=== PATIENT | female | born 1985 | race Asian ===

== ENCOUNTER 2016-12-06 07:45 | Emergency (ER) | payer BC, OTHER ==
[~2016-12-06] VITALS: Ht 160 cm; Wt 45.4 kg
[2016-12-06 08:16] VITALS: BP 114/87
== END 2016-12-06 09:44 | disposition home or self-care (01) ==
LOC: ER 07:45
DX: J06.9 Acute upper respiratory infection, unspecified (principal)

== ENCOUNTER → 2017-06-10 | Outpatient (CLI) | payer BC ==
[2017-06-10 10:34] LABS: Basophils # (auto) 0 uL; Basophils % (auto) 0.3 % (0.0-2.0); Eosinophils # (auto) 0.1 uL; Lymphocytes # (auto) 1.6 uL; Mean Corpuscular Volume 69.4 fL (80.0-100.0); Neutrophils # (auto) 7.6 uL; White Blood Cell 9.9 10^3/uL (4.4-10.8)
[2017-06-10 10:37] LABS: Eosinophils % (auto) 1.4 % (0.0-7.0); Hematocrit 36.3 % (36.0-46.0); Hemoglobin 11.5 g/dL (12.2-16.2); Mean Corpuscular Hemoglobin 21.9 pg (28.0-32.0); Mean Corpuscular Hgb Conc. 31.6 g/dL (32.0-36.0); Monocytes # (auto) 0.6 uL; Monocytes % (auto) 5.8 % (0.0-12.0); Neutrophils % (auto) 76.5 % (37.0-80.0); Platelet Count (auto) 319 10^3/uL (140-450); Red Blood Cells 5.23 10^6/uL (4.0-5.20); Red Cell Distribution Width 14.8 % (11.8-14.3)
[2017-06-10 11:15] LABS: Alcohol, Urine < 3.0 mg/dL (0-5); Amphetamine Screen, Urine NEGATIVE (NEGATIVE); Barbiturate Scree,Urine NEGATIVE (NEGATIVE); Benzodiazephine Screen, Urine NEGATIVE (NEGATIVE); Cannabinoid Screen, Urine NEGATIVE (NEGATIVE); Cocaine Screen, Urine NEGATIVE (NEGATIVE); Opiate Scree,Urine NEGATIVE (NEGATIVE); Phencyclidine Screen, Urine NEGATIVE (NEGATIVE)
[2017-06-11 03:10] LABS: RPR Non Reactive (Non Reactive)
== END | disposition home or self-care (01) ==
LOC: LAB 09:34
PROVIDERS: ATTEND Obstetrics & Gynecology
DX: Z34.80 Encounter for supervision of other normal pregnancy, unspecified trimester (principal); Z31.430 Encounter of female for testing for genetic disease carrier status for procreative management; Z3A.00 Weeks of gestation of pregnancy not specified
CPT/HCPCS: 36415; 80307; 81220; 83036; 84144; 84702; 85025; 86592; 86703; 86762; 86850; 86900; 86901; 87086; 87340

== ENCOUNTER → 2017-09-25 | Outpatient (CLI) | payer BC ==
[2017-09-25 08:06] LABS: Mean Corpuscular Hgb Conc. 31.1 g/dL (32.0-36.0)
[2017-09-25 08:08] LABS: Hematocrit 35.4 % (36.0-46.0); Mean Corpuscular Hemoglobin 22.1 pg (28.0-32.0); Platelet Count (auto) 256 10^3/uL (140-450); Red Blood Cells 4.98 10^6/uL (4.0-5.20); Red Cell Distribution Width 14.2 % (11.8-14.3); White Blood Cell 11.5 10^3/uL (4.4-10.8)
[2017-09-25 08:12] LABS: Band Neutrophils % (manual) 0; Basophils % (manual) 0 (0.0-2.0); Blast Cells 0; Myelocytes % 0; Promyelocytes % 0; Reactive Lymphocytes 0
[2017-09-25 08:27] LABS: Eosinophils % (manual) 1 (0-7); Lymphocytes % (manual) 11 (10.0-50.0); Metamyelocytes % 2; Monocytes % (manual) 9 (0-12)
== END | disposition home or self-care (01) ==
LOC: LAB 07:45
PROVIDERS: ATTEND Obstetrics & Gynecology
DX: O99.810 Abnormal glucose complicating pregnancy (principal); Z3A.00 Weeks of gestation of pregnancy not specified
CPT/HCPCS: 36415; 82951; 83036; 85007; 85027

== ENCOUNTER 2017-10-25 18:57 | Observation (INO) | payer BC ==
[~2017-10-25 18:57] MED LIST: IRON150T2 PO; NIF10C PO; PREN-96 PO; PROG200C6 PV
== END 2017-10-25 20:11 | disposition home or self-care (01) | DRG 781 ==
LOC: LDRP 18:57
PROVIDERS: ADMIT Specialist; ATTEND Specialist
DX: O24.419 Gestational diabetes mellitus in pregnancy, unspecified control (principal); O60.03 Preterm labor without delivery, third trimester; Z3A.31 31 weeks gestation of pregnancy
CPT/HCPCS: 59025; 81002; G0378

== ENCOUNTER 2017-10-29 18:58 | Observation (INO) | payer BC | END 2017-10-29 20:10 | disposition home or self-care (01) | DRG 781 | LOC: INTOOBSV 18:58 → LDRP 18:58 | PROVIDERS: ADMIT Specialist; ATTEND Specialist | DX: O24.410 Gestational diabetes mellitus in pregnancy, diet controlled (principal); O60.03 Preterm labor without delivery, third trimester; Z3A.32 32 weeks gestation of pregnancy | CPT/HCPCS: 59025; 81002; G0378 ==

== ENCOUNTER 2017-11-02 21:00 | Observation (INO) | payer BC | END 2017-11-02 22:30 | disposition home or self-care (01) | DRG 778 | LOC: LDRP 21:00 | PROVIDERS: ADMIT Specialist; ATTEND Specialist | DX: O60.03 Preterm labor without delivery, third trimester (principal); O24.419 Gestational diabetes mellitus in pregnancy, unspecified control; O26.893 Other specified pregnancy related conditions, third trimester; N89.8 Other specified noninflammatory disorders of vagina; O99.513 Diseases of the respiratory system complicating pregnancy, third trimester; J45.909 Unspecified asthma, uncomplicated; Z3A.32 32 weeks gestation of pregnancy | CPT/HCPCS: 59025; 76818; 81002; 82962; G0378 ==

== ENCOUNTER 2017-11-05 21:05 | Observation (INO) | payer SELFPAY | END 2017-11-05 22:40 | disposition home or self-care (01) | DRG 781 | LOC: LDRP 21:05 → EDUNIT# 21:05 | PROVIDERS: ADMIT Obstetrics & Gynecology; ATTEND Obstetrics & Gynecology | DX: O24.419 Gestational diabetes mellitus in pregnancy, unspecified control (principal); Z3A.33 33 weeks gestation of pregnancy | CPT/HCPCS: 59025; 81002; 82948; G0378 ==

== ENCOUNTER 2017-11-09 21:05 | Observation (INO) | payer SELFPAY | END 2017-11-09 22:00 | disposition home or self-care (01) | DRG 781 | LOC: LDRP 21:05 → EDUNIT# 21:05 | PROVIDERS: ADMIT Obstetrics & Gynecology; ATTEND Obstetrics & Gynecology | DX: O62.9 Abnormality of forces of labor, unspecified (principal); O26.893 Other specified pregnancy related conditions, third trimester; R10.9 Unspecified abdominal pain; O24.419 Gestational diabetes mellitus in pregnancy, unspecified control; Z3A.33 33 weeks gestation of pregnancy | CPT/HCPCS: 59025; 81002; 82948; 82962; G0378 ==

== ENCOUNTER 2017-11-19 20:40 | Observation (INO) | payer BC | END 2017-11-19 22:00 | disposition home or self-care (01) | DRG 781 | LOC: LDRP 20:40 | PROVIDERS: ADMIT Obstetrics & Gynecology; ATTEND Obstetrics & Gynecology | DX: O24.419 Gestational diabetes mellitus in pregnancy, unspecified control (principal); O60.03 Preterm labor without delivery, third trimester; O26.893 Other specified pregnancy related conditions, third trimester; N89.8 Other specified noninflammatory disorders of vagina; Z3A.35 35 weeks gestation of pregnancy | CPT/HCPCS: 59025; 76818; 81002; 82962; G0378 ==

== ENCOUNTER 2017-11-24 20:54 | Observation (INO) | payer BC | END 2017-11-24 22:12 | disposition home or self-care (01) | DRG 778 | LOC: LDRP 20:54 | PROVIDERS: ADMIT Specialist; ATTEND Specialist | DX: O60.03 Preterm labor without delivery, third trimester (principal); O26.873 Cervical shortening, third trimester; O24.419 Gestational diabetes mellitus in pregnancy, unspecified control; O62.9 Abnormality of forces of labor, unspecified; Z3A.35 35 weeks gestation of pregnancy | CPT/HCPCS: 59025; 81002; 82962; G0378 ==

== ENCOUNTER 2017-11-26 20:57 | Observation (INO) | payer BC | END 2017-11-26 21:51 | disposition home or self-care (01) | DRG 781 | LOC: LDRP 20:57 | PROVIDERS: ADMIT Specialist; ATTEND Specialist | DX: O62.9 Abnormality of forces of labor, unspecified (principal); O24.419 Gestational diabetes mellitus in pregnancy, unspecified control; Z3A.36 36 weeks gestation of pregnancy | CPT/HCPCS: 59025; 76818; 81002; 82948; 82962; G0378 ==

== ENCOUNTER 2017-11-30 18:30 | Observation (INO) | payer BC ==
[~2017-11-30] VITALS: Ht 160 cm; Wt 63.0 kg
[2017-11-30] MEDS ORDERED: NIFEdipine 10 MG CAP PO ONE (19:15)
== END 2017-11-30 20:05 | disposition home or self-care (01) | DRG 778 ==
LOC: LDRP 18:30
PROVIDERS: ADMIT Obstetrics & Gynecology; ATTEND Obstetrics & Gynecology
DX: O60.03 Preterm labor without delivery, third trimester (principal); O26.893 Other specified pregnancy related conditions, third trimester; N89.8 Other specified noninflammatory disorders of vagina; Z3A.36 36 weeks gestation of pregnancy
CPT/HCPCS: 59025; 81002; 82948; 82962; G0378

== ENCOUNTER 2017-12-03 16:55 | Observation (INO) | payer BC | END 2017-12-03 18:05 | disposition home or self-care (01) | DRG 781 | LOC: LDRP 16:55 | PROVIDERS: ADMIT Obstetrics & Gynecology; ATTEND Obstetrics & Gynecology | DX: O24.419 Gestational diabetes mellitus in pregnancy, unspecified control (principal); O60.03 Preterm labor without delivery, third trimester; O62.9 Abnormality of forces of labor, unspecified; Z3A.37 37 weeks gestation of pregnancy | CPT/HCPCS: 59025; 76818; 81002; 82948; 82962; G0378 ==

== ENCOUNTER 2017-12-09 11:45 | Observation (INO) | payer BC ==
[~2017-12-09 11:45] MED LIST changes: -PROG200C6 PV
== END 2017-12-09 13:00 | disposition home or self-care (01) | DRG 781 ==
LOC: LDRP 11:45
PROVIDERS: ADMIT Specialist; ATTEND Specialist
DX: O24.410 Gestational diabetes mellitus in pregnancy, diet controlled (principal); O62.9 Abnormality of forces of labor, unspecified; Z3A.38 38 weeks gestation of pregnancy
CPT/HCPCS: 59025; 76818; 81002; 82948; 82962; G0378

== ENCOUNTER 2017-12-15 10:28 | Observation (INO) | payer BC ==
[2017-12-15] MEDS ORDERED: FOLI1TAB6 PO (11:37)
[2017-12-15] MEDS ORDERED: ASCO500T11 PO (11:37)
== END 2017-12-15 12:15 | disposition home or self-care (01) | DRG 781 ==
LOC: LDRP 10:28
PROVIDERS: ADMIT Obstetrics & Gynecology; ATTEND Obstetrics & Gynecology
DX: O24.410 Gestational diabetes mellitus in pregnancy, diet controlled (principal); O62.9 Abnormality of forces of labor, unspecified; Z3A.38 38 weeks gestation of pregnancy
CPT/HCPCS: 59025; 76818; 81002; 82948; 82962; G0378

== ENCOUNTER 2017-12-19 15:10 | Inpatient (IN) | payer BC ==
[~2017-12-19] VITALS: Ht 160 cm; Wt 68.0 kg
[~2017-12-19 15:10] MED LIST changes: +ASCO500T11 PO; +FOLI1TAB6 PO; -NIF10C PO
[2017-12-19] MEDS ORDERED: LACT. RINGERS/OXYTOCIN 20UNITS 1,000 ML IV SCH (16:27)
[2017-12-19] MEDS ORDERED: LACTATED RINGER'S 1,000 ML IV SCH (16:27)
[2017-12-19] MEDS ORDERED: LIDOCAINE 2% (LOCAL ANESTH.) PF 5ml SDV ID PRN (16:30)
[2017-12-19] MEDS ORDERED: NALBUPHINE HCL 10 MG/1ml INJECTION IV PRN (16:30)
[2017-12-19] MEDS ORDERED: PHISODERM TOP SOLN 240ML BTL TOP PRN (16:30)
[2017-12-19 17:34] LABS: Basophils # (auto) 0 uL; Eosinophils # (auto) 0.1 uL; Hemoglobin 11.8 g/dL (12.2-16.2); Neutrophils # (auto) 7.6 uL; Nucleated Red Blood Cells % 0.1 %
[2017-12-19 17:36] LABS: Urine Bacteria FEW /hpf (None Seen); Urine Blood 1+ /uL (Negative); Urine Specific Gravity 1.007 (1.001-1.035); Urine WBC 3 /hpf (0 - 5)
[2017-12-19 17:36] LABS: Basophils % (auto) 0.2 % (0.0-2.0); Eosinophils % (auto) 0.6 % (0.0-7.0); Lymphocytes # (auto) 1.4 uL; Lymphocytes % (auto) 14.4 % (10.0-50.0); Mean Corpuscular Hemoglobin 22.5 pg (28.0-32.0); Mean Corpuscular Volume 72.7 fL (80.0-100.0); Monocytes # (auto) 0.8 uL; Monocytes % (auto) 8.2 % (0.0-12.0); Neutrophils % (auto) 76.6 % (37.0-80.0); Platelet Count (auto) 232 10^3/uL (140-450); Red Blood Cells 5.22 10^6/uL (4.0-5.20); Red Cell Distribution Width 14.9 % (11.8-14.3); White Blood Cell 9.9 10^3/uL (4.4-10.8)
[2017-12-19 17:53] LABS: Albumin 3.1 g/dL (3.4-5.0); BUN/Creatinine Ratio 12.2; Bilirubin, Total 0.2 mg/dL (0.2-1.0); Calcium 8.7 mg/dL (8.5-10.1); INR 0.84 (0.9-1.15); Partial Thromboplastin Time 26.1 sec (23.78-33.04); Potassium 3.8 mmol/L (3.5-5.1); Prothrombin Time 9.1 sec (9.27-12.13); Total Protein 7.8 g/dL (6.4-8.2)
[2017-12-19] MEDS ORDERED: ACCU-CHEK COMFORT CURVE STRIP VI SCH (18:00)
[2017-12-19] MEDS ORDERED: fentaNYL CITRATE 100 MCG/2 ML VL IV ONE ×2 (18:15→19:00)
[2017-12-19] MEDS ORDERED: fentaNYL W ROPIVACAINE 150 ML EPI SCH ×2 (18:15→19:00)
[2017-12-19] MEDS ORDERED: ePHEDrine SULFATE 50 MG/ML AMP IV ONE ×2 (18:15→19:00)
[2017-12-19] MEDS ORDERED: LIDOCAINE HCL 2 %PF INJ 10ML AMP IJ ONE ×2 (18:15→19:00)
[2017-12-19] MEDS ORDERED: NALOXONE HCL 0.4 MG/ML VIAL IV ONE (19:00)
[2017-12-19] MEDS ORDERED: IBUPROFEN 600 MG TAB PO PRN (22:00)
[2017-12-19 23:00] VITALS: BP 128/64
[2017-12-20] MEDS: WITCH HAZEL-GLYCERIN PAD TOP PRN ×2 (00:24→10:09)
[2017-12-20] MEDS: DERMOPLAST 60ML BOTTLE TOP PRN (00:25)
[2017-12-20 03:00] VITALS: BP 120/72
[2017-12-20] MEDS: DOCUSATE CALCIUM 240 MG CAP PO SCH (10:09)
[2017-12-20 10:40] VITALS: BP 112/64
[2017-12-20 15:00] VITALS: BP 119/71
[2017-12-20 18:56] VITALS: BP 120/76
[2017-12-20 23:00] VITALS: BP 117/73
[2017-12-21 03:00] VITALS: BP 125/72
[2017-12-21] MEDS ORDERED: TETANUS-DIPTH-ACEL PERTUSSIS 0.5ML SYRG IM ONE (07:00)
[2017-12-21] MEDS ORDERED: MEASLES, MUMPS & RUBELLA VAC(MMRII) 0.5ML SC ONE (07:00)
[2017-12-21 07:10] VITALS: BP 120/88
[2017-12-21] MEDS: WITCH HAZEL-GLYCERIN PAD TOP PRN (10:10)
[2017-12-21] MEDS: DOCUSATE CALCIUM 240 MG CAP PO SCH (10:11)
[2017-12-21] MEDS: DERMOPLAST 60ML BOTTLE TOP PRN (10:16)
[2017-12-21 11:00] VITALS: BP 131/85
[2017-12-22 05:05] LABS: RPR Non Reactive (Non Reactive)
== END 2017-12-21 12:15 | disposition home or self-care (01) | DRG 775 ==
LOC: LDRP 15:10 → OBSVTOIN 15:10 → LDRP 19:54
PROVIDERS: ADMIT Specialist; ATTEND Specialist
PROC: 10D07Z6 Extraction of Products of Conception, Vacuum, Via Natural or Artificial Opening (ICD-10-PCS; principal; 2017-12-19)
PROC: 0W8NXZZ Division of Female Perineum, External Approach (ICD-10-PCS; 2017-12-19)
PROC: 3E0R3BZ Introduction of Anesthetic Agent into Spinal Canal, Percutaneous Approach (ICD-10-PCS; 2017-12-19)
PROC: 00HU33Z Insertion of Infusion Device into Spinal Canal, Percutaneous Approach (ICD-10-PCS; 2017-12-19)
PROC: 10907ZC Drainage of Amniotic Fluid, Therapeutic from Products of Conception, Via Natural or Artificial Opening (ICD-10-PCS; 2017-12-19)
PROC: 3E033VJ Introduction of Other Hormone into Peripheral Vein, Percutaneous Approach (ICD-10-PCS; 2017-12-19)
DX: O24.429 Gestational diabetes mellitus in childbirth, unspecified control (principal); O99.52 Diseases of the respiratory system complicating childbirth; J45.909 Unspecified asthma, uncomplicated; Z37.0 Single live birth; Z3A.39 39 weeks gestation of pregnancy
CPT/HCPCS: 36415; 59025; 59409; 80053; 81001; 81002; 82948; 82962; 85025; 85610; 85730; 86592; 86850; 86900; 86901; 90472; 90715; 94760; 96365; 96366; A6257; J2001; J2590; J3010

== ENCOUNTER 2021-06-15 04:29 | Emergency (ER) | payer BC, OTHER ==
[~2021-06-15] VITALS: Ht 160 cm; Wt 53.5 kg
[2021-06-15] MEDS ORDERED: SODIUM CHLORIDE 0.9% 1,000 ML IVB ONE (05:15)
[2021-06-15 05:38] LABS: Basophils # (auto) 0.1 10 ^3/uL (0-0.2); Eosinophils # (auto) 0.1 10 ^3/uL (0-0.8); Eosinophils % (auto) 0.8 % (0.0-7.0); Lymphocytes # (auto) 1.7 10 ^3/uL (0.4-5.4); Monocytes # (auto) 0.6 10 ^3/uL (0-1.3); White Blood Cell 14.5 10^3/uL (4.4-10.8)
[2021-06-15 05:39] LABS: Basophils % (auto) 0.6 % (0.0-2.0); Hematocrit 35.8 % (36.0-46.0); Hemoglobin 11.4 g/dL (12.2-16.2); Lymphocytes % (auto) 11.6 % (10.0-50.0); Mean Corpuscular Hgb Conc. 31.8 g/dL (32.0-36.0); Mean Corpuscular Volume 69.1 fL (80.0-100.0); Monocytes % (auto) 4.3 % (0.0-12.0); Neutrophils % (auto) 82.7 % (37.0-80.0); Nucleated Red Blood Cells % 0.2 %; Red Blood Cells 5.18 10^6/uL (4.0-5.20)
[2021-06-15 06:07] LABS: Albumin 3.6 g/dL (3.4-5.0); Potassium 4.1 mmol/L (3.5-5.1)
[2021-06-15 06:09] LABS: BUN/Creatinine Ratio 19.7
[2021-06-15 06:11] LABS: Bilirubin, Total 0.2 mg/dL (0.2-1.0); Total Protein 7.6 g/dL (6.4-8.2)
[2021-06-15 11:15] VITALS: BP 103/72
== END 2021-06-15 11:21 | disposition home or self-care (01) ==
LOC: ER 04:29
DX: O03.9 Complete or unspecified spontaneous abortion without complication (principal); D50.9 Iron deficiency anemia, unspecified; J45.909 Unspecified asthma, uncomplicated; Z3A.09 9 weeks gestation of pregnancy
CPT/HCPCS: 36415; 76801; 80053; 84702; 85025; 86900; 86901; 96360; 96361; 99285; J7030